=== PATIENT | female | born 1955 | race Caucasian/White ===

== ENCOUNTER 2019-05-29 06:00 | Outpatient (RCR) | payer MEDICARE, OTHER, SELFPAY | END 2019-06-13 23:59 | disposition home or self-care (01) | LOC: WPT 06:00 | PROVIDERS: Referring Provider Orthopaedic Surgery; Visit Provider Orthopaedic Surgery | DX: Z47.1 Aftercare following joint replacement surgery (principal); Z96.651 Presence of right artificial knee joint | CPT/HCPCS: 97110; 97112; 97150; 97162; G0283 ==

== ENCOUNTER 2019-06-14 06:00 | Outpatient (RCR) | payer MEDICARE, OTHER, SELFPAY | END 2019-07-13 23:59 | disposition home or self-care (01) | LOC: WPT 06:00 | PROVIDERS: Referring Provider Orthopaedic Surgery; Visit Provider Orthopaedic Surgery | DX: Z47.1 Aftercare following joint replacement surgery (principal); Z96.651 Presence of right artificial knee joint | CPT/HCPCS: 97110; 97112; 97116; 97140; 97164 ==

== ENCOUNTER 2019-07-14 06:00 | Outpatient (RCR) | payer MEDICARE, OTHER, SELFPAY | END 2019-08-13 23:59 | disposition home or self-care (01) | LOC: WPT 06:00 | PROVIDERS: Referring Provider Orthopaedic Surgery; Visit Provider Orthopaedic Surgery | DX: Z47.1 Aftercare following joint replacement surgery (principal); Z96.651 Presence of right artificial knee joint | CPT/HCPCS: 97110; 97112; 97530 ==

== ENCOUNTER 2019-11-06 07:20 | Outpatient (CLI) | payer MEDICARE, OTHER, SELFPAY ==
--- NOTE | 2019-11-06 07:27 | MR_ITS ---
WS: [id number] MRI LUMBAR SPINE NONCONTRAST TECHNIQUE: Sagittal T1, T2 and STIR imaging. Axial T1 and T2 imaging. CLINICAL INFORMATION: LUMBOSACRAL RADICULOPATHY COMPARISON: None. FINDINGS: Mild lumbar curve. No acute compression. Mild disc bulging worse at L3-L4 and L4-L5. L1-L2: Mild disc bulging with impingement on the left subarticular recess and traversing left L2 nerv e root. Mild left foraminal narrowing. Mild facet arthropathy. Mild central canal stenosis. L2-L3: Mild disc bulging with mild central canal stenosis. Narrowing subarticular recess bilaterally. Tiny central protrusion. Mild right and no significant left foraminal narrowing. Tiny annular tear. Mild facet arthropathy. L3-L4: Annular bulging in combination with facet arthropathy results in moderate central canal stenos is. Impingement on the traversing L4 nerve roots bilaterally. Left foraminal protrusion impinges the exiting left L3 nerve root laterally. Moderate to severe left foraminal narrowing. Right foramen is p atent. Moderate central canal stenosis. L4-L5: Disc bulging in combination with facet arthropathy and ligamentum flavum hypertrophy results i n severe central canal stenosis. Impingement on the traversing L5 nerve roots. Mild to moderate right foraminal narrowing. L5-S1: Mild annular bulging impinges the traversing left S1 nerve root. Advanced facet arthropathy. F oramen are patent. Visualized pelvic bony structures: Normal. Paravertebral soft tissues: Normal. MR/MR lumbar spine wo con* [id number] IMPRESSION: 1. Moderate central canal stenosis L3-4 and severe central canal stenosis L4-5 due to disc bulging combination with facet arthropathy and ligamentum flavum h ypertrophy. 2. Prominent left foraminal protrusion L3-4 impinges the exiting left L3 nerve root with moderate to severe left foraminal narrowing. 3. Mild to moderate right L4-5 foraminal narrowing contacts the exiting right L4 nerve root. 4. Impingement on the left subarticular recess L1-2. 5. Mild central canal stenosis L1-L2 and L2-3. 6. Moderate to advanced facet arthropathy L3-L4 L4-L5.
== END 2019-11-06 07:21 | disposition home or self-care (01) ==
LOC: RADSHAW 07:26
PROVIDERS: PCP Nurse Practitioner Family; Visit Provider Nurse Practitioner Family
DX: M54.17 Radiculopathy, lumbosacral region (principal); M48.061 Spinal stenosis, lumbar region without neurogenic claudication; M51.26 Other intervertebral disc displacement, lumbar region; M47.816 Spondylosis without myelopathy or radiculopathy, lumbar region
CPT/HCPCS: 72148

== ENCOUNTER → 2020-05-13 11:01 | Outpatient (BNVA) | payer MEDICARE, OTHER, SELFPAY | PROVIDERS: PCP Nurse Practitioner Family; Referring Provider Nurse Practitioner Family; Visit Provider Podiatrist Foot & Ankle Surgery | DX: M79.672 Pain in left foot (principal); M79.671 Pain in right foot | CPT/HCPCS: 73630 ==

== ENCOUNTER 2020-12-24 13:46 | Outpatient (CLI) | payer MEDICARE, OTHER, SELFPAY ==
--- NOTE | 2020-12-24 13:52 | XR_ITS ---
WS: [id number] SCREENING DEXA SCAN [facility] CLINICAL INFORMATION: ASYMTOMATIC POSTMENOPAUSAL STATE COMPARISON: None. FINDINGS: The left forearm bone mineral density measures 0.97. This corresponds to a T score score of 1.2 and Z score of 2.7. Left femoral neck bone mineral density measures 1.069 g/cm2. This corresponds to a T score of 0.5 and Z score of 1.0. Right femoral neck bone mineral density measures 1.034 g/cm2. This corresponds to a T score 0.2of and Z score of 0.7. Mean femoral neck bone mineral density measures 1.052 g/cm2. This corresponds to a T score of 0.3 and Z score of 0.8. XR/XR DEXA axial skeleton* [id number] IMPRESSION: Normal bone mineralization. Patient's FRAX calculated 10 year probability for major osteoporotic fracture i s 6.0 % and osteoporotic hip fracture is 0.2%.
== END 2020-12-24 13:47 | disposition home or self-care (01) ==
PROVIDERS: PCP Nurse Practitioner Family; Visit Provider Nurse Practitioner Family
DX: Z78.0 Asymptomatic menopausal state (principal)
CPT/HCPCS: 77080

== ENCOUNTER 2021-04-11 07:36 | Outpatient (CLI) | payer MEDICARE, OTHER, SELFPAY ==
[2021-04-11 08:08] VITALS: BMI 39.8
--- NOTE | 2021-04-11 08:11 | ECG_ITS ---
[facility] Test Date: 2021-04-11 Pat Name: Zeny Leggett Department: Room: Gender: Female Geriatric Psychiatrist: Abril Cronin : 1955 Requested By: Lia Kitchen Order Number: [id number] Chanell MD: Lia Kitchen M.D. Interpretive Statements NAME OF STUDY: EXERCISE SESTAMIBI STRESS TEST INDICATION: Exertional dyspnea Baseline blood pressure of 137/79 mm Hg, heart rate 70 beats per minute and oxygen saturation 94%. EKG showed normal sinus rhythm, normal axis with normal ST-Ts. ??? The patient exercised for 7 min 31 sec on a Modified Joe Protocol. Patient attained a maximum heart rate of 136 beats per minute( 88 % of the maximum predicted heart rate) with a blood pressure at the peak exercise of 160/78 mm Hg and oxygen saturation of 94%. The EKG at the peak exercise revealed sinus tachycardia with [address] depression in infero-lateral leads. Patient did not have any chest pain or any significant arrhythmis with the exercise.??? During the recovery phase, there were no new changes. Isolated PVC's noted in recovery. ??? Blood pressure at the end of the recovery phase was 175/76 mm Hg with a heart rate of 90 beats per minute and oxygen saturation of 96%. ??? CONCLUSION: 1. Normal EKG response to treadmill exercise with Modified Joe Protocol. 2. No exercise-induced chest pain or cardiac arrhythmia 3. Decreased exercise tolerance, attained a maximum of 4.6 METs. Maximum VO2 of 16.1 ml/kg/min. 4. Baseline normal blood pressure with normal response to exercise. 5. Perfusion scan will be documented separately. Electronically Signed On 04-18-2021 11:36:03 [employer] TECHNICIAN by Lia Kitchen M.D. [id number]
--- NOTE | 2021-04-11 08:12 | NMCV_ITS ---
NM nahomy perf SPECT r/s* [id number] Zeny Leggett Age: 65 Gender: F : 1955 Exam Date: 04/11/2021 08:12 Ordering Phys: Lia Kitchen MD ([email or web address]) Technologist: YAMILE Patino Exam Location: [facility] Indications: Exertional SHORTNESS OF BREATH STRESS TEST Please see separate stress test report in [facility] for full findings IMAGE PROTOCOL Rest/Stress 1 Exercise Day Radiopharmaceutical Dose (mCi) Administration Site Administered by Rest: Tc-99m 10.7 IV YAMILE Patino Sestamibi Stress:Tc-99m 32.4 IV YAMILE Patino Sestamibi Rest: 11-Apr-2021 60 Discovery 630 Stress: 11-Apr-2021 30 Discovery 630 Radiopharmaceutical was injected at 86 % maximum heart rate. Images obtained in supine and prone position. SPECT RESULTS Technical Quality: Excellent Raw Data Analysis: Breast attenuation Image Corrections: No attenuation or motion correction applied Summed Stress Score: 0 Summed Rest Score: 0 Summed Difference Score: 0 PERFUSION FINDINGS SPECT images demonstrate homogeneous tracer distribution throughout the myocardium. FUNCTIONAL RESULTS (calculated via Gated SPECT) Stress Image LV EF (%): 82 Stress EDV (mL):57 TID: 0.97 Stress ESV (mL):10 FUNCTIONAL FINDINGS: The left ventricle is normal in size. Transient Ischemia Dilatation of 0.97. There is normal left ventricular systolic function. The left ventricular ejection fraction is normal with a value of 82%. There is normal left ventricular wall thickening with no regional wall motion abnormality. IMPRESSIONS 1. Myocardial perfusion imaging is normal. 2. Overall left ventricular systolic function is normal without regional wall motion abnormalities. 3. The left ventricular ejection fraction is normal with a value of 82%. 4. Scan indicates low risk for cardiac events. Lia Kitchen MD (Electronically Signed) Final Date: 11 April 2021 14:00 S
[2021-04-11 10:18] VITALS: BP 175/76; PULSE 90
== END 2021-04-11 07:37 | disposition home or self-care (01) ==
LOC: RAD 07:44 → CDL 08:07
PROVIDERS: PCP Nurse Practitioner Family; Visit Provider Internal Medicine Cardiovascular Disease
DX: R06.09 Other forms of dyspnea (principal); R06.02 Shortness of breath
CPT/HCPCS: 78452; 93017; A9500

== ENCOUNTER → 2021-05-21 12:33 | Day surgery (SDC) | payer MEDICARE, OTHER, SELFPAY ==
[2021-05-21 14:05] VITALS: BP 172/81; PULSE 72; RESP 20; TEMP 37.2; O2SAT 95
[2021-05-21 14:37] VITALS: BMI 39.4
[2021-05-21 14:51] VITALS: BP 181/84; PULSE 68; RESP 20; TEMP 37.3; O2SAT 97
[2021-05-21 15:53] VITALS: BP 154/77; PULSE 73; RESP 18; TEMP 37; O2SAT 97
== END ==
PROVIDERS: PCP Nurse Practitioner Family; Visit Provider Nurse Practitioner Family
DX: U07.1 COVID-19 (principal)
CPT/HCPCS: 96365

== ENCOUNTER → 2021-06-04 14:33 | Outpatient (BNVA) | payer MEDICARE, OTHER, SELFPAY | PROVIDERS: PCP Nurse Practitioner Family; Visit Provider Internal Medicine Cardiovascular Disease | DX: R06.02 Shortness of breath (principal); I35.0 Nonrheumatic aortic (valve) stenosis; I34.0 Nonrheumatic mitral (valve) insufficiency; I36.1 Nonrheumatic tricuspid (valve) insufficiency; K21.9 Gastro-esophageal reflux disease without esophagitis; F41.8 Other specified anxiety disorders; K58.9 Irritable bowel syndrome, unspecified | CPT/HCPCS: 99214 ==

== ENCOUNTER → 2021-12-09 14:46 | Outpatient (BNVA) | payer MEDICARE, OTHER, SELFPAY | PROVIDERS: PCP Nurse Practitioner Family; Visit Provider Internal Medicine Cardiovascular Disease | DX: R06.02 Shortness of breath (principal); I35.0 Nonrheumatic aortic (valve) stenosis; I34.0 Nonrheumatic mitral (valve) insufficiency; Z86.16 Personal history of COVID-19 | CPT/HCPCS: 99214 ==

== ENCOUNTER 2022-11-18 11:50 | Outpatient (CLI) | payer MEDICARE, OTHER, SELFPAY ==
--- NOTE | 2022-11-18 11:58 | USCV_ITS ---
Zeny Leggett Age: 67 Gender: F : 1955 Exam Date: 11/18/2022 12:10 Ordering Phys: Tiffany Jacob Technologist: Juan Quintero Exam Location: [facility] [place] Indication: pulminary hypertension BP: 145 / 80 HR: 79 Rhythm: Sinus Technical Quality: Adequate MEASUREMENTS (Male / Female) Normal Values 2D ECHO LV Diastolic Diameter PLAX 3.9 cm 4.2 - 5.9 / 3.9 - 5.3 cm LV Systolic Diameter PLAX 2.8 cm IVS Diastolic Thickness 1.1 cm 0.6 - 1.0 / 0.6 - 0.9 cm IVS Systolic Thickness 1.6 cm LVPW Diastolic Thickness 1.1 cm 0.6 - 1.0 / 0.6 - 0.9 cm LVPW Systolic Thickness 1.5 cm LVOT Diameter 2.0 cm LV Ejection Fraction 2D Teich 56.0 % LV Ejection Fraction MOD 2C 73.4 % LV Ejection Fraction 2C AL 73.8 % LA Diameter 3.9 cm M-MODE Aortic Annulus Diameter 3.3 cm LA Ao Ratio MM 1.3 MV E Point Septal Separation 0.8 cm DOPPLER AV Peak Velocity 199.7 cm/s LVOT Peak Velocity 109.0 cm/s AV Area Cont Eq vti 1.8 cm squared AV Area Cont Eq pk 1.8 cm squared MV Area PHT 3.3 cm squared Mitral E to A Ratio 0.8 MV E' Velocity 41.5 cm/s Mitral E to MV E' Ratio 9.2 Mitral E to LV E' Lateral Ratio 7.6 Mitral E to LV E' Septal Ratio 11.9 TR Peak Velocity 280.7 cm/s TR Peak Gradient 31.5 mmHg TV Peak E Velocity 98.0 cm/s Right Atrial Pressure 3.0 mmHg Pulmonary Artery Systolic Pressu 34.5 mmHg RV Acceleration Time 0.1 s FINDINGS Left Ventricle Normal left ventricular size and systolic function, EF 71 %. No regional wall motion abnormalities. Mild left ventricular hypertrophy. Grade I/IV diastolic dysfunction (abnormal relaxation filling pattern), normal to mildly elevated filling pressures. Right Ventricle The right ventricle is normal in size and function. Right Atrium The right atrium is normal in size. Left Atrium Mildly increased left atrial size. Mitral Valve Thickened mitral valve. Mild mitral valve regurgitation. Aortic Valve Thickened aortic valve. Aortic valve sclerosis. Tricuspid Valve Trace tricuspid valve regurgitation. Pulmonic Valve Pulmonic valve not well visualized. Pericardium Normal pericardium without effusion. Aorta Normal ascending aorta dimension. IVC Inferior vena cava not visualized. CONCLUSIONS Normal left ventricular size and systolic function, EF 71 %. No regional wall motion abnormalities. Mild left ventricular hypertrophy. Grade I/IV diastolic dysfunction (abnormal relaxation filling pattern), normal to mildly elevated filling pressures. Mildly increased left atrial size. Thickened mitral valve. Mild mitral valve regurgitation. Aortic valve sclerosis. Trace tricuspid valve regurgitation. Estimated pulmonary artery peak systolic pressure 35 mmHg There is no pericardial effusion. No similar previous studies are available for comparison Dr Lonnie Mayer MD [facility] (Electronically Signed) Final Date: 18 November 2022 14:08 S
== END 2022-11-18 11:51 | disposition home or self-care (01) ==
LOC: RAD 11:52
PROVIDERS: PCP Nurse Practitioner Family; Visit Provider Nurse Practitioner Family
DX: I27.20 Pulmonary hypertension, unspecified (principal); I34.0 Nonrheumatic mitral (valve) insufficiency; I35.8 Other nonrheumatic aortic valve disorders
CPT/HCPCS: 93306